=== PATIENT | female | born 2000 | race Two or more races ===

== ENCOUNTER 2021-01-08 12:24 | Outpatient (REF) | payer OTHER, MEDICAID, SELFPAY | END 2021-01-08 12:25 | disposition home or self-care (01) | LOC: HO.LAB 12:24 | PROVIDERS: Visit Provider Internal Medicine | DX: Z20.822 Contact with and (suspected) exposure to COVID-19 (principal) | CPT/HCPCS: C9803; U0003; U0005 ==